=== PATIENT | male | born 1965 | race Caucasian/White ===

== ENCOUNTER → 2018-08-07 | Outpatient (CLI) | payer OTHER ==
[~2018-08-07] MED LIST: METHACHOLINE KIT (J7674) INH ONE
--- NOTE | 2018-08-07 07:39 | PFTRPT ---
Height: 73.00 Inches Weight: 240.00 Lbs BSA: 2.33 Diagnosis: J44.9 DATE OF PROCEDURE: 08/07/2018 ORDERED BY: Dr. Higinio Thompson Spirometry: Excellent technical quality. Forced vital capacity reduced. FEV1 in proportion. Obstructive index is, therefore, normal. Flow Volume Loop: Expiratory limb of the flow volume loop suggests some nonspecific flow rate limitation. Lung Volumes: Total lung capacity normal. Residual volume is borderline in proportion. Diffusing Capacity: Diffusing capacity, although mildly reduced, is appropriate for alveolar volume. Hemoglobin: No hemoglobin available for correction. Airway Mechanics: Airway resistance and conductance are normal. IMPRESSION: Nonspecific flow rate limitation with mild decline in the absolute diffusing capacity. Please correlate clinically. MTDD
--- NOTE | 2018-08-07 08:13 | PFTRPT ---
Height: 73.00 Inches Weight: 240.00 Lbs BSA: 2.33 Diagnosis: J44.9 DATE OF PROCEDURE: 08/07/2018 ORDERED BY: Dr. Higinio Thompson INTERPRETATION: Study of excellent technical quality. Under protocol, methacholine was administered. At a dose of 0.25 mg or 1.375 CDUs, a 23% decline in the FEV1 was noted. PC of 0.17 is significant. Flow rates did return to baseline post bronchodilator administration. IMPRESSION: Positive methacholine challenge study. MTDD
== END ==
LOC: M CARPUL 06:36
PROVIDERS: ATTEND Internal Medicine
DX: R07.89 Other chest pain (principal); J44.9 Chronic obstructive pulmonary disease, unspecified
CPT/HCPCS: 94010; 94070; 94726; 94729; J7674

== ENCOUNTER → 2018-12-09 | Outpatient (CLI) | payer OTHER ==
--- NOTE | 2018-12-09 12:03 | REP ---
CT of the chest without IV contrast for dyspnea and chest pain: There are no comparison plain film or CT chest studies. There are no infiltrates. There are no pleural effusions. There are no masses or nodules. There is no focal or diffuse pleural thickening. There is no mediastinal lymph node enlargement. There is no axillary lymph node enlargement. In the absence of IV contrast the study is insensitive for hilar lymph node enlargement. The unenhanced thoracic aorta is unremarkable. The cardiac size is normal. There is no pericardial effusion. The visualized upper abdominal structures are unremarkable. There is no adrenal mass. Impression: Essentially negative CT study of the chest without IV contrast. Electronically Signed by Alf New MD 12/09/2018 11:53 A
== END ==
LOC: M RAD 10:30
PROVIDERS: ATTEND Physician Assistant
DX: R91.8 Other nonspecific abnormal finding of lung field (principal); R06.00 Dyspnea, unspecified; R07.89 Other chest pain

== ENCOUNTER 2022-08-10 04:53 | Inpatient (IN) | payer OTHER ==
[~2022-08-10] VITALS: Ht 177.8 cm; Wt 96.2 kg
[2022-08-10 05:34] LABS: BASO % 0.2 % (0.0-1.0); HEMATOCRIT 46.9 % (42.0-52.0); HEMOGLOBIN 15.6 g/dl (13.5-17.5); LYMPH # 0.6 10^3/uL (1.5-5.0); LYMPH % 11.3 % (24.0-44.0); MEAN CORPUSCULAR HEMOGLOBIN 28.4 pg (27.0-33.0); MEAN CORPUSCULAR HGB CONC 33.3 g/dl (32.0-36.5); MEAN CORPUSCULAR VOLUME 85.4 fl (80.0-96.0); MONO # 0.6 10^3/uL (0.0-0.8); MONO % 11.9 % (2.0-8.0); NEUTROPHILS # 3.7 10^3/uL (1.5-8.5); NEUTROPHILS % 76.2 % (36.0-66.0); PLATELET COUNT, AUTOMATED 109 10^3/uL (150-450); RED BLOOD COUNT 5.49 10^6/uL (4.30-6.10); WHITE BLOOD COUNT 4.9 10^3/uL (4.0-10.0)
[2022-08-10 05:42] LABS: INR 1.09; PROTHROMBIN TIME 14.3 SECONDS (12.5-14.5)
[2022-08-10 05:55] LABS: CK-MB VALUE MASS < 1.0 NG/ML (<3.6)
[2022-08-10 05:57] LABS: CPK CREATINE PHOSPHOKINASE 48 U/L (46-171); MB/CK RELATIVE INDEX 2.08 (< OR =4)
[2022-08-10 05:58] LABS: BLOOD UREA NITROGEN 13 MG/DL (9-23); CALCIUM LEVEL 8.8 MG/DL (8.5-10.1); CARBON DIOXIDE LEVEL 26 MMOL/L (20-31); CHLORIDE LEVEL 105 MMOL/L (98-107); GLOMERULAR FILTRATION RATE > 60.0 (>56); GLUCOSE, FASTING 118 MG/DL (60-100); MAGNESIUM LEVEL 1.9 MG/DL (1.8-2.4); POTASSIUM SERUM 4.5 MMOL/L (3.5-5.1); SODIUM LEVEL 138 MMOL/L (136-145)
[2022-08-10 05:59] LABS: THYROID STIMULATING HORMONE 1.359 uIU/ML (0.55-4.78)
[2022-08-10 06:00] LABS: FREE T4 0.97 NG/DL (0.89-1.76)
[2022-08-10] MEDS ORDERED: LIDOCAINE W/EPINEPHRINE 1% 20ML VIAL INFIL ONE (06:25)
[2022-08-10] MEDS ORDERED: NS 1,000 ML IV ONE (06:25)
[2022-08-10 06:45] LABS: LDH LACTATE DEHYDROGENASE 188 U/L (120-246)
[2022-08-10 07:06] LABS: ALBUMIN 4.1 G/DL (3.2-5.2); ALKALINE PHOSPHATASE 79 U/L (46-116); ALT/SGPT 27 U/L (7.0-40); AST/SGOT 24 U/L (<34); BILIRUBIN,DIRECT 0.4 MG/DL (<0.4); BILIRUBIN,TOTAL 1.2 MG/DL (0.3-1.2)
[2022-08-10 07:44] LABS: TOTAL PROTEIN 6.7 G/DL (5.7-8.2)
[2022-08-10 08:07] LABS: CK-MB VALUE MASS < 1.0 NG/ML (<3.6); CPK CREATINE PHOSPHOKINASE 69 U/L (46-171); MB/CK RELATIVE INDEX 1.44 (< OR =4)
[2022-08-10] MEDS: guaiFENesin ER 600 MG TAB PO SCH ×2 (09:00→21:09)
[2022-08-10 09:11] LABS: CK-MB VALUE MASS < 1.0 NG/ML (<3.6)
[2022-08-10 09:15] LABS: CPK CREATINE PHOSPHOKINASE 62 U/L (46-171); MB/CK RELATIVE INDEX 1.61 (< OR =4)
[2022-08-10 10:24] LABS: RSV AMPLIFICATION NEGATIVE (NEGATIVE)
[2022-08-10 10:24] LABS: AMPHETAMINES LEVEL URINE NEGATIVE (NEGATIVE); BENZODIAZEPINES URINE NEGATIVE (NEGATIVE); CANNABINOIDS URINE NEGATIVE (NEGATIVE); PHENCYCLIDINE URINE NEGATIVE (NEGATIVE)
[2022-08-10 10:25] LABS: BARBITURATES URINE NEGATIVE (NEGATIVE); COCAINE METABOLITE URINE NEGATIVE (NEGATIVE); METHADONE URINE NEGATIVE (NEGATIVE); OPIATES URINE NEGATIVE (NEGATIVE)
[2022-08-10] MEDS ORDERED: BENZ-18 PO (11:11)
[2022-08-10] MEDS ORDERED: D 50CAP2 PO (11:11)
[2022-08-10] MEDS ORDERED: HOME MED LIST COMPLETE! XX SCH (11:20)
[2022-08-10] MEDS ORDERED: BENZONATATE 100MG CAPSULE PO PRN (11:50)
[2022-08-10 15:24] VITALS: BP 128/80
[2022-08-10] MEDS: NIRMATRELVIR/RITONAVIR CO-PACK (EMERGENCY USE AUTH) PO SCH (18:36)
[2022-08-10 20:37] VITALS: BP 148/77
[2022-08-10] MEDS ORDERED: NIRMATRELVIR/RITONAVIR (RENAL) CO-PACK (EUA) PO SCH (21:00)
[2022-08-11 00:07] VITALS: BP 133/81
[2022-08-11 04:19] LABS: HEMATOCRIT 46.6 % (42.0-52.0); MEAN CORPUSCULAR HEMOGLOBIN 28.5 pg (27.0-33.0); MEAN CORPUSCULAR HGB CONC 34.3 g/dl (32.0-36.5); MEAN CORPUSCULAR VOLUME 82.9 fl (80.0-96.0); PLATELET COUNT, AUTOMATED 143 10^3/uL (150-450); RED BLOOD COUNT 5.62 10^6/uL (4.30-6.10); WHITE BLOOD COUNT 5.1 10^3/uL (4.0-10.0)
[2022-08-11 04:39] LABS: BLOOD UREA NITROGEN 13 MG/DL (9-23); CALCIUM LEVEL 8.6 MG/DL (8.5-10.1); CARBON DIOXIDE LEVEL 24 MMOL/L (20-31); CHLORIDE LEVEL 102 MMOL/L (98-107); CREATININE FOR GFR 0.87 MG/DL (0.70-1.30); GLOMERULAR FILTRATION RATE > 60.0 (>56); GLUCOSE, FASTING 94 MG/DL (60-100); POTASSIUM SERUM 4.4 MMOL/L (3.5-5.1); SODIUM LEVEL 135 MMOL/L (136-145)
[2022-08-11 04:52] VITALS: BP 146/83
[2022-08-11] MEDS: guaiFENesin ER 600 MG TAB PO SCH ×2 (08:49→20:12)
[2022-08-11] MEDS: ENOXAPARIN 40MG/0.4ML SYRINGE (J1650 PER 10MG) SC SCH (08:49)
[2022-08-11] MEDS: NIRMATRELVIR/RITONAVIR CO-PACK (EMERGENCY USE AUTH) PO SCH ×2 (08:52→20:12)
[2022-08-11 09:00] VITALS: BP 131/68
[2022-08-11 13:00] VITALS: BP 117/63
[2022-08-11 15:52] VITALS: BP 138/73
[2022-08-11 19:53] VITALS: BP 151/74
[2022-08-12 00:08] VITALS: BP 137/81
[2022-08-12 04:46] VITALS: BP 104/77
[2022-08-12 07:18] VITALS: BP 136/76
[2022-08-12] MEDS ORDERED: FLUBLOK(EGG FREE)(QUAD)INFLUENZA VACC 0.5ML SYRINGE 18YRS & OLDER IM.IMMUN ONE (09:00)
[2022-08-12] MEDS: ENOXAPARIN 40MG/0.4ML SYRINGE (J1650 PER 10MG) SC SCH (09:26)
[2022-08-12] MEDS: NIRMATRELVIR/RITONAVIR CO-PACK (EMERGENCY USE AUTH) PO SCH (09:31)
[2022-08-12] MEDS: guaiFENesin ER 600 MG TAB PO SCH (09:32)
[2022-08-12] MEDS ORDERED: NIRMATRELVIR/RITONAVIR CO-PACK (EMERGENCY USE AUTH) PO SCH (09:45)
== END 2022-08-12 11:58 | disposition home or self-care (01) | DRG 179 ==
LOC: M ED 04:53 → M ED INP 11:38 → ENRESERV 13:46 → M PCU 15:00
PROVIDERS: ADMIT Internal Medicine; ATTEND Internal Medicine
PROC: B246ZZZ Ultrasonography of Right and Left Heart (ICD-10-PCS; principal; 2022-08-12)
DX: U07.1 COVID-19 (principal); D69.6 Thrombocytopenia, unspecified; R55 Syncope and collapse; R00.1 Bradycardia, unspecified

== ENCOUNTER 2022-08-15 15:08 | Emergency (ER) | payer OTHER ==
[~2022-08-15] VITALS: Ht 182.9 cm; Wt 94.8 kg
[~2022-08-15 15:08] MED LIST changes: +BENZ-18 PO; +D 50CAP2 PO; -METHACHOLINE KIT (J7674) INH ONE
[2022-08-15] MEDS ORDERED: NIRM1TAB PO (15:55)
[2022-08-15 17:42] LABS: BASO % 0.3 % (0.0-1.0); EOS # 0.1 10^3/uL (0.0-0.5); EOS % 2.2 % (0.0-3.0); HEMATOCRIT 45.5 % (42.0-52.0); HEMOGLOBIN 15.7 g/dl (13.5-17.5); LYMPH # 1.4 10^3/uL (1.5-5.0); LYMPH % 21.9 % (24.0-44.0); MEAN CORPUSCULAR HEMOGLOBIN 28.5 pg (27.0-33.0); MEAN CORPUSCULAR HGB CONC 34.5 g/dl (32.0-36.5); MEAN CORPUSCULAR VOLUME 82.7 fl (80.0-96.0); MONO # 1.4 10^3/uL (0.0-0.8); MONO % 21.6 % (2.0-8.0); NEUTROPHILS # 3.4 10^3/uL (1.5-8.5); NEUTROPHILS % 53.5 % (36.0-66.0); PLATELET COUNT, AUTOMATED 173 10^3/uL (150-450); WHITE BLOOD COUNT 6.4 10^3/uL (4.0-10.0)
[2022-08-15 17:53] LABS: INR 0.98; PROTHROMBIN TIME 13.2 SECONDS (12.5-14.5)
[2022-08-15 18:03] LABS: BLOOD UREA NITROGEN 12 MG/DL (9-23); CALCIUM LEVEL 9.4 MG/DL (8.5-10.1); CARBON DIOXIDE LEVEL 28 MMOL/L (20-31); CHLORIDE LEVEL 98 MMOL/L (98-107); CK-MB VALUE MASS < 1.0 NG/ML (<3.6); CPK CREATINE PHOSPHOKINASE 53 U/L (46-171); CREATININE FOR GFR 0.89 MG/DL (0.70-1.30); GLOMERULAR FILTRATION RATE > 60.0 (>56); GLUCOSE, FASTING 97 MG/DL (60-100); MB/CK RELATIVE INDEX 1.88 (< OR =4); POTASSIUM SERUM 4.3 MMOL/L (3.5-5.1); SODIUM LEVEL 134 MMOL/L (136-145)
[2022-08-15] MEDS ORDERED: ISOVUE-370 76% 100ML VIAL As Ordered ONE (18:50)
[2022-08-15 19:17] LABS: CK-MB VALUE MASS < 1.0 NG/ML (<3.6)
[2022-08-15 19:19] LABS: CPK CREATINE PHOSPHOKINASE 39 U/L (46-171); MB/CK RELATIVE INDEX 2.56 (< OR =4)
[2022-08-15 20:47] VITALS: O2SAT 99
[2022-08-15 20:51] VITALS: BP 134/77
[2022-08-15] MEDS ORDERED: APIXABAN 5 MG TAB (ELIQUIS) PO ONE (21:05)
[2022-08-15] MEDS ORDERED: CEPH500C PO (21:13)
[2022-08-15] MEDS ORDERED: ELIQ5TAB PO (21:13)
[2022-08-15] MEDS ORDERED: CEPHALEXIN 500 MG CAP PO ONE (21:15)
[2022-08-17 10:36] LABS: DRVV SCREEN 40.8 SEC
[2022-08-17 10:38] LABS: PTT LUPUS TYPE ANTICOAG SCREEN 1.1 (0-1.2)
== END 2022-08-15 21:55 | disposition home or self-care (01) ==
LOC: M ED 15:08
DX: I82.622 Acute embolism and thrombosis of deep veins of left upper extremity (principal); J12.9 Viral pneumonia, unspecified; M25.522 Pain in left elbow; L03.114 Cellulitis of left upper limb; Z86.16 Personal history of COVID-19; R00.1 Bradycardia, unspecified; I25.10 Atherosclerotic heart disease of native coronary artery without angina pectoris; Z79.01 Long term (current) use of anticoagulants; Z79.899 Other long term (current) drug therapy